=== PATIENT | female | born 1975 | race Caucasian/White ===

== ENCOUNTER → 2016-09-09 | Outpatient (CLI) | payer BC ==
[2016-09-09 10:19] LABS: HEMATOCRIT 39.8 % (36.0-47.0); HEMOGLOBIN 13.3 g/dL (12.0-15.5); HGB HCT DIFFERENCE 0.1; MEAN CORPUSCULAR HEMOGLOBIN 28.8 pg (27.0-33.4); MEAN CORPUSCULAR HGB CONC 33.5 g/dL (32.0-36.0); MEAN CORPUSCULAR VOLUME 86 fl (80-97); RED BLOOD COUNT 4.63 10^6/uL (3.72-5.28); RED CELL DISTRIBUTION WIDTH 13.7 % (11.5-14.0); WHITE BLOOD COUNT 12.2 10^3/uL (4.0-10.5)
[2016-09-09 10:28] LABS: APPEARANCE,URINE SLIGHTLY-CLOUDY; BILIRUBIN,URINE NEGATIVE (NEGATIVE); GLUCOSE, URINE NEGATIVE (NEGATIVE); KETONES,URINE NEGATIVE (NEGATIVE); LEUKOCYTE ESTERASE,URINE NEGATIVE (NEGATIVE); NITRITE,URINE NEGATIVE (NEGATIVE); PROTEIN,URINE NEGATIVE (NEGATIVE); URINE SPECIFIC GRAVITY 1.019; UROBILINOGEN,URINE NEGATIVE mg/dL (<2.0)
[2016-09-09 10:39] LABS: ALANINE AMINOTRANSFERASE 47 U/L (9-52); ALBUMIN 4.3 g/dL (3.5-5.0); ALKALINE PHOSPHATASE 87 U/L (38-126); ANION GAP 11 (5-19); ASPARTATE AMINO TRANSFERASE 27 U/L (14-36); BILIRUBIN,TOTAL 0.5 mg/dL (0.2-1.3); BLOOD UREA NITROGEN 17 mg/dL (7-20); CALCIUM 9.2 mg/dL (8.4-10.2); CARBON DIOXIDE 29 mmol/L (22-30); CHLORIDE 102 mmol/L (98-107); CREATININE RESULT 0.64 mg/dL (0.52-1.25); GLUCOSE 135 mg/dL (75-110); POTASSIUM 3.9 mmol/L (3.6-5.0); SODIUM 142.1 mmol/L (137-145); TOTAL PROTEIN 7.3 g/dL (6.3-8.2)
== END ==
LOC: LAB 10:03
PROVIDERS: ATTEND Nurse Practitioner
DX: I10 Essential (primary) hypertension (principal); R60.9 Edema, unspecified
CPT/HCPCS: 36415; 80053; 81001; 85027

== ENCOUNTER → 2016-10-06 | Outpatient (CLI) | payer BC ==
--- NOTE | 2016-10-08 15:29 | XCELERA REPORT ---
[address] [address] Lower Extremity Arterial Evaluation Name: CATRACHITO HONG Age: 41 yrs Gender: Female : 1975 Patient Status: Outpatient Patient Location: Study Date: 10/06/2016 01:11 PM Procedure: A color flow and duplex scan of the lower extremity arteries was performed bilaterally with velocity and waveform anaylsis. Reason For Study: CLAUDICATION / SWELLING Ordering Physician: CORNELIA PAULINO Performed By: Dustin Garcia Measurements and Calculations Right Left RESEARCH INSTRUCTOR PSV 155.2 175.8 cm/sec Prox PFA PSV -72.9 -111.8 cm/sec Dist SFA PSV -108.1 -126.5 cm/sec Dist Pop A PSV 107.5 99.9 cm/sec Dist ALISON PSV 136.2 135.3 cm/sec Dist DIAGNOSTIC IMAGING MANAGER PSV 115.7 144.9 cm/sec Inder Pedis PSV 109.7 121.5 cm/sec Right Side Arterial Evaluation Normal velocity and triphasic waveforms noted from the Common Femoral artery to the Popliteal artery. Then Biphasic infrageniculate vessels. Well maintained velocity, throughout. 0-19% stenosis at the infrageniculate level. Ankle Brachial index is 1.15.In the DP, non compressible in the Posterior Tibial. Left Side Arterial Evaluation Normal velocity and triphasic waveforms noted from the Common Femoral artery to the Popliteal artery. Then Biphasic infrageniculate vessels. Well maintained velocity, throughout. 0-19% stenosis at the infrageniculate level. Ankle Brachial index was not obtainable, compressible vessels. Interpretation Summary Mild hemodynamically significant lesions in the bilateral lower extremities, on duplex imaging, at rest. : CORNELIA PAULINO > Primo Navarro
--- NOTE | 2016-10-08 15:32 | XCELERA REPORT ---
[address] [address] Lower Extremity Venous Evaluation Name: CATRACHITO HONG Age: 41 yrs Gender: Female : 1975 Patient Status: Outpatient Patient Location: Study Date: 10/06/2016 01:29 PM Procedure: A bilateral duplex scan of the lower extremity veins was performed. The evaluation included responses to compression and other maneuvers with patient in the supine and standing positions to assess venous insufficiency. Reason For Study: CLAUDICATION / SWELLING Ordering Physician: CORNELIA PAULINO Performed By: Dustin Garcia Right Sided Venous Evaluation Deep venous system evaluatiion shows patent veins with no obstruction or significant reflux identified. Sapheno Femoral junction: no reflux. Femoral vein reflux: none identified Greater Saphenous reflux: none identified. Short Saphenous reflux: none identified. No significant Perforators identified. Left Sided Venous Evaluation Deep venous system evaluatiion shows patent veins with no obstruction or significant reflux identified. Sapheno Femoral junction: no reflux. Femoral vein reflux: none identified Greater Saphenous reflux: none identified. Short Saphenous reflux: none identified. No significant Perforators identified. Interpretation Summary No duplex evidence of DVT or obstruction in the bilateral lower extremities. With no significant reflux identified. : CORNELIA PAULINO > Primo Navarro
== END ==
LOC: SP 09-30 15:22
PROVIDERS: ATTEND Student in an Organized Health Care Education/Training Program
DX: I70.213 Atherosclerosis of native arteries of extremities with intermittent claudication, bilateral legs (principal); M79.89 Other specified soft tissue disorders
CPT/HCPCS: 93925; 93970

== ENCOUNTER 2017-11-13 08:22 | Emergency (ER) | payer BC ==
[2017-11-13] MEDS ORDERED: LABETALOL HCL 200 MG TABLET PO ONE (08:58)
[2017-11-13] MEDS ORDERED: KETOROLAC TROMETHAMINE INJ/PF 30 MG/1 ML SDV IV ONE (09:09)
[2017-11-13 09:54] LABS: ABSOLUTE BASOPHILS # (AUTO) 0.1 10^3/uL (0.0-0.2); ABSOLUTE EOSINOPHILS # (AUTO) 0.4 10^3/uL (0.0-0.6); ABSOLUTE LYMPHOCYTES (AUTO) 2.6 10^3/uL (0.5-4.7); ABSOLUTE MONOCYTES (AUTO) 0.8 10^3/uL (0.1-1.4); ABSOLUTE NEUT (AUTO) 7.3 10^3/uL (1.7-8.2); BASOPHILS % (AUTO) 0.7 % (0-2); EOSINOPHILS % (AUTO) 3.6 % (0-6); HEMATOCRIT 40.9 % (36.0-47.0); HEMOGLOBIN 13.5 g/dL (12.0-15.5); LYMPHOCYTES % (AUTO) 23.2 % (13-45); MEAN CORPUSCULAR HEMOGLOBIN 27.6 pg (27.0-33.4); MEAN CORPUSCULAR VOLUME 84 fl (80-97); MONOCYTES % (AUTO) 7.1 % (3-13); PLATELET COUNT 394 10^3/uL (150-450); RED BLOOD COUNT 4.88 10^6/uL (3.72-5.28); RED CELL DISTRIBUTION WIDTH 15.7 % (11.5-14.0); SEGMENTED NEUTROPHILS % (AUTO) 65.4 % (42-78); TOTAL CELLS COUNTED % (AUTO) 100 %; WHITE BLOOD COUNT 11.1 10^3/uL (4.0-10.5)
[2017-11-13 10:04] LABS: ANION GAP 12 (5-19); BLOOD UREA NITROGEN 11 mg/dL (7-20); CARBON DIOXIDE 26 mmol/L (22-30); CHLORIDE 104 mmol/L (98-107); CREATINE KINASE 92 U/L (30-135); GLUCOSE 144 mg/dL (75-110); POTASSIUM 4.1 mmol/L (3.6-5.0); SODIUM 141.9 mmol/L (137-145)
[2017-11-13] MEDS ORDERED: AMOXICILLIN TR/POT CLAVULANATE 500-125 MG TAB PO ONE (10:29)
[2017-11-13] MEDS ORDERED: FLUCONAZOLE 100 MG TABLET PO ONE (10:34)
--- NOTE | 2017-11-13 10:34 | ER Document Report ---
ED General - General Chief Complaint: Arm Pain Stated Complaint: LEFT ARM PAIN Time Seen by Provider: 11/13/17 08:42 TRAVEL OUTSIDE OF THE [place] IN LAST 30 DAYS: No - HPI Patient complains to provider of: Left arm pain swelling Notes: Patient coming in for evaluation of left arm pain. Patient states ongoing for approximately 24-48 hours. Patient denies any trauma to the left arm. Patient does have some nonspecific bruising on the bicep region also states there is a not at the distal humerus just above the medial epicondyle day prior however this is now gone away. Patient also complains of some redness of the forearm. Denies any pain with supination pronation states pain with flexing the biceps. Patient is concerned about a DVT however has not denies any drug use patient does have a cat however states that the cast not scratched her on her arm. Denies fevers chills nausea vomiting diarrhea. - Related Data Allergies/Adverse Reactions: nickel Allergy (Verified 11/13/17 08:24) No Known Drug Allergies Allergy (Verified 11/13/17 08:24) Past Medical History - Social History Smoking Status: Current Every Day Smoker Frequency of alcohol use: None Drug Abuse: None Family History: Reviewed & Not Pertinent Patient has suicidal ideation: No Patient has homicidal ideation: No Renal/ Medical History: Denies: Hx Peritoneal Dialysis Review of Systems - Review of Systems Constitutional: No symptoms reported EENT: No symptoms reported Cardiovascular: No symptoms reported Respiratory: No symptoms reported Gastrointestinal: No symptoms reported Genitourinary: No symptoms reported Female Genitourinary: No symptoms reported Musculoskeletal: Other - Left arm pain Skin: No symptoms reported Hematologic/Lymphatic: No symptoms reported Neurological/Psychological: No symptoms reported Physical Exam - Vital signs Vitals: Temp Pulse Resp BP Pulse Ox 98.7 F 88 16 187/98 H 98 11/13/17 08:27 11/13/17 08:27 11/13/17 08:27 11/13/17 08:27 11/13/17 08:27 Interpretation: Normal - General General appearance: Appears well, Alert - HEENT Head: Normocephalic, Atraumatic Eyes: Normal Pupils: PERRL - Respiratory Respiratory status: No respiratory distress Chest status: Nontender Breath sounds: Normal Chest palpation: Normal - Cardiovascular Rhythm: Regular Heart sounds: Normal auscultation Murmur: No - Abdominal Inspection: Normal Distension: No distension Bowel sounds: Normal Tenderness: Nontender Organomegaly: No organomegaly - Back Back: Normal, Nontender - Extremities General upper extremity: Nontender, Normal color, Normal ROM, Normal temperature. No: Normal inspection - Left upper extremity has swelling and some induration to the biceps and brachioradialis past the antecubital area no pain with supination pronation of left arm pain with flexion equal hospital coder strength pulses intact distally. Erythema starting in the antecubital fossa streaking down to the midforearm patient does have some bruising that looks to be in various ages some black some gold tense of the bruising on the bicep. Right side unaffected General lower extremity: Normal inspection, Nontender, Normal color, Normal ROM , Normal temperature, Normal weight bearing. No: David's sign - Neurological Neuro grossly intact: Yes Cognition: Normal Orientation: AAOx4 Antonina Coma Scale Eye Opening: Spontaneous Antonina Coma Scale Verbal: Oriented Antonina Coma Scale Motor: Obeys Commands Antonina Coma Scale Total: 15 Speech: Normal Motor strength normal: LUE, RUE, LLE, RLE Sensory: Normal - Psychological Associated symptoms: Normal affect, Normal mood - Skin Skin Temperature: Warm Skin Moisture: Dry Skin Color: Normal Course - Re-evaluation Re-evalutation: 11/13/17 15:21 Unclear etiology for the patient's symptoms Dopplers otherwise negative for SVT DVT there is also not give clear etiology CPKs negative. Patient does have good pulses distally does paresthesias no pain on proportion. Patient does have slight erythema looks to be some trauma to the antecubital fossa however patient denies any scratching or trauma by her cats denies any IV drug use. My concern would be possibly from a cellulitis from cat scratch patient otherwise up-to-date on immunizations she is not asplenic however will continue to cover the patient with Augmentin patient will return to the ER for me to reevaluate her tomorrow morning - Vital Signs Vital signs: Temp Pulse Resp BP Pulse Ox 99.3 F 69 16 148/70 H 98 11/13/17 10:50 11/13/17 10:50 11/13/17 10:50 11/13/17 10:50 11/13/17 10:50 - Laboratory Result Diagrams: 11/13/17 09:23 11/13/17 09:23 Laboratory results interpreted by me: 11/13/17 11/13/17 09:23 09:23 WBC 11.1 H RDW 15.7 H Glucose 144 H Discharge - Discharge Clinical Impression: Left arm cellulitis, Left arm swelling Condition: Good Disposition: HOME, SELF-CARE Instructions: Cellulitis ([facility]) Additional Instructions: The ultrasound of your on it is not revealing signs of superficial blood clot or a deep blood clot. At this time your laboratory studies also did not show any significant etiology for the bruising to your arm I am concerned for the redness and warmth of the arm which may have underlying cellulitis is causing some your pain. I recommend taking Tylenol and anti-inflammatory medication at least once a day to help out with your pain for the next few days. We will start you on antibiotic called Augmentin. Please be aware that this antibiotic may cause you to have nausea vomiting and diarrhea please increase her yogurt intake and fiber intake to aid with the diarrhea return to the ER for any concerning issues. Prescriptions: Amox Tr/Potassium Clavulanate [Augmentin 875-125 Tablet] 1 tab PO BID 10 Days tablet Fluconazole [Diflucan 100 Mg Tablet] 200 mg PO DAILY #1 tablet Ondansetron [Zofran Odt] 4 mg PO Q6 PRN #30 tab.rapdis PRN Reason: For Nausea/Vomiting
[2017-11-13 10:52] VITALS: BP 148/70
--- NOTE | 2017-11-13 11:25 | XCELERA REPORT ---
[address] [address] Upper Extremity Venous Evaluation Name: CATRACHITO HONG Age: 42 yrs Gender: Female : 1975 Patient Status: Emergency Patient Location: ER Study Date: 11/13/2017 09:40 AM Procedure: Unilateral duplex scan of the left upper extremity veins was performed, including responses to compression and other maneuvers. Reason For Study: left arm pain swelling Ordering Physician: ARYAN SMITH Performed By: Anita Chu Left Sided Venous Evaluation Study challenging due to body habitus. Normal vessel filling wall to wall, compression and augmentation as well as Colour flow down to the forearm veins. Interpretation Summary No duplex evidence of DVT or obstruction in the left upper extremity. : ARYAN SMITH > Primo Navarro
== END 2017-11-13 11:00 | disposition home or self-care (01) ==
LOC: ER 08:22
DX: S46.209A Unspecified injury of muscle, fascia and tendon of other parts of biceps, unspecified arm, initial encounter (principal); S56 Injury of muscle, fascia and tendon at forearm level; S40.022A Contusion of left upper arm, initial encounter; X58.XXXA Exposure to other specified factors, initial encounter; L03.114 Cellulitis of left upper limb; F17.200 Nicotine dependence, unspecified, uncomplicated
CPT/HCPCS: 99284; 96374; 36415; 87040; 82550; 85025; 80048; 93971 ×2; J1885